=== PATIENT | male | born 1975 | race African-American/Black ===

== ENCOUNTER 2018-02-14 13:03 | Emergency (ER) | payer SELFPAY ==
[~2018-02-14] VITALS: Ht 188 cm; Wt 73.6 kg
[~2018-02-14 13:03] MED LIST: 1-ME1LIQ PO; ASPI81TA11 PO; CLOP75 PO; CONTOUR2 XX; GABA600T PO; MECL25 PO; METF500 PO; METO10 PO; NOVOLOGMXP SQ; NRSS SQ
[2018-02-14 13:28] VITALS: BP 161/98; PULSE 86; RESP 18; TEMP 97.8; O2SAT 99
--- NOTE | 2018-02-14 14:08 | RADRPT ---
EXAM DATE/TIME: 02/14/2018 13:41 [place] COMPARISON: No previous studies available for comparison. INDICATIONS : Right foot pain, no injury. MEDICAL HISTORY : Hypercholesterolemia. Hypertension Diabetes mellitus type II. SURGICAL HISTORY : Right foot surgery. ENCOUNTER: Initial ACUITY: 3 days PAIN SCORE: 5/10 LOCATION: Right foot, great toe. FINDINGS: There is amputation at the base of the proximal thigh to the second digit. There is no evidence of ac [place] fracture. Bony mineralization is normal. Joint spaces are maintained. CONCLUSION: 1. There is no evidence of acute fracture. Garrett Esqueda MD on February 14, 2018 at 13:58 Board Certified Radiologist. This report was verified electronically.
[2018-02-14 16:01] LABS: AUTOMATED NEUTROPHIL # 3.4 TH/MM3 (1.8-7.7); BASOPHIL # 0.1 TH/MM3 (0-0.2); BASOPHIL % 0.6 % (0.0-2.0); EOSINOPHIL # 0.2 TH/MM3 (0-0.4); EOSINOPHIL % 2.8 % (0.0-4.0); HEMATOCRIT 40.3 % (39.0-51.0); HEMOGLOBIN 13.5 GM/DL (13.0-17.0); LYMPH % 47.6 % (9.0-44.0); MEAN CELL VOLUME 93.6 FL (80.0-100.0); MEAN CORPUSCULAR HEMOGLOBIN 31.4 PG (27.0-34.0); MEAN CORPUSCULAR HGB CONC 33.6 % (32.0-36.0); MONO % 7.7 % (0.0-8.0); MONOCYTE # 0.6 TH/MM3 (0-0.9); NEUT % 41.3 % (16.0-70.0); PLATELET COUNT 365 TH/MM3 (150-450); RED CELL DISTRIBUTION WIDTH 12.8 % (11.6-17.2); WHITE BLOOD COUNT 8.3 TH/MM3 (4.0-11.0)
[2018-02-14 16:08] LABS: ALBUMIN 2.4 GM/DL (3.4-5.0); AST (GOT) 68 U/L (15-37); BICARBONATE 26.3 MEQ/L (21.0-32.0); BLOOD UREA NITROGEN 17 MG/DL (7-18); C-REACTIVE PROTEIN 0.67 MG/DL (0.00-0.30); CALCIUM 8.6 MG/DL (8.5-10.1); CHLORIDE 108 MEQ/L (98-107); GLOMERULAR FILTRATION RATE 80 ML/MIN (>89); GLUCOSE,RANDOM 98 MG/DL (74-106); SODIUM (NA) 141 MEQ/L (136-145)
[2018-02-14 16:11] LABS: ALKALINE PHOSPHATASE 687 U/L (45-117); ALT (GPT) 78 U/L (12-78); TOTAL BILIRUBIN ADULT 0.8 MG/DL (0.2-1.0); TOTAL PROTEIN 6.9 GM/DL (6.4-8.2)
[2018-02-14 16:14] LABS: INTERNATIONAL NORMALIZED RATIO 0.9 RATIO; PROTHROMBIN TIME - PATIENT 9.5 SEC (9.8-11.6)
[2018-02-14 16:48] VITALS: BP_SYST 194; BP_SYST 99; BP_DIAS 111; BP_DIAS 71; PULSE 74; RESP 14; O2SAT 99
[2018-02-14] MEDS ORDERED: LOSARTAN 25 MG TAB PO ONE (17:15)
[2018-02-14] MEDS ORDERED: AMLO10 PO (17:29)
[2018-02-14] MEDS ORDERED: NOVOLOGMXP SQ (17:29)
[2018-02-14] MEDS ORDERED: LOSA25TA PO ×2 (17:29→18:01)
[2018-02-14] MEDS ORDERED: LEVEMIR SQ (17:29)
[2018-02-14] MEDS ORDERED: NOVORP2 SQ (17:29)
[2018-02-14] MEDS ORDERED: MECL-62 PO (17:29)
[2018-02-14] MEDS ORDERED: ASPI81TA16 PO (17:29)
[2018-02-14] MEDS ORDERED: GABA600T PO (17:29)
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
[2018-02-14] MEDS ORDERED: SULFAMETHOXAZOLE-TRIMETHOPRIM DS 800-160 MG TAB PO ONE (17:45)
[2018-02-14] MEDS ORDERED: CEPHALEXIN MONOHYDRATE 500 MG CAP PO ONE (17:45)
--- NOTE | 2018-02-14 17:48 | PD ---
Physical Exam Date Seen by Provider: Feb 14, 2018 Narrative This is a diabetic patient who presents with a chief complaint of of a sore right great toe. Data Data Last Documented VS Vital Signs Date Time Temp Pulse Resp B/P (MAP) Pulse Ox O2 Delivery O2 Flow Rate FiO2 02/14/18 16:48 74 14 194/111 (138) 99 Room Air 02/14/18 13:28 97.8 Orders Orders Complete Blood Count With Diff (02/14/18 13:31) Comprehensive Metabolic Panel (02/14/18 13:31) Prothrombin Time / Inr (Pt) (02/14/18 13:31) Act Partial Throm Time (Ptt) (02/14/18 13:31) [place]gren Sedimentation Rate (02/14/18 13:31) C-Reactive Protein (Crp) (02/14/18 13:31) Foot, Complete ([id number]) (02/14/18 ) Amlodipine (Norvasc) (02/14/18 17:15) Losartan (Cozaar) (02/14/18 17:15) Labs Laboratory Tests Test 02/14/18 15:09 White Blood Count 8.3 TH/MM3 Red Blood Count 4.30 MIL/MM3 Hemoglobin 13.5 GM/DL Hematocrit 40.3 % Mean Corpuscular Volume 93.6 FL Mean Corpuscular Hemoglobin 31.4 PG Mean Corpuscular Hemoglobin Concent 33.6 % Red Cell Distribution Width 12.8 % Platelet Count 365 TH/MM3 Mean Platelet Volume 8.0 FL Neutrophils (%) (Auto) 41.3 % Lymphocytes (%) (Auto) 47.6 % Monocytes (%) (Auto) 7.7 % Eosinophils (%) (Auto) 2.8 % Basophils (%) (Auto) 0.6 % Neutrophils # (Auto) 3.4 TH/MM3 Lymphocytes # (Auto) 4.0 TH/MM3 Monocytes # (Auto) 0.6 TH/MM3 Eosinophils # (Auto) 0.2 TH/MM3 Basophils # (Auto) 0.1 TH/MM3 CBC Comment DIFF FINAL Differential Comment Erythrocyte Sedimentation Rate 17 mm/hr Prothrombin Time 9.5 SEC Prothromb Time International Ratio 0.9 RATIO Activated Partial Thromboplast Time 27.5 SEC Blood Urea Nitrogen 17 MG/DL Creatinine 1.20 MG/DL Random Glucose 98 MG/DL Total Protein 6.9 GM/DL Albumin 2.4 GM/DL Calcium Level 8.6 MG/DL Alkaline Phosphatase 687 U/L Aspartate Amino Transf (AST/SGOT) 68 U/L Alanine Aminotransferase (ALT/SGPT) 78 U/L Total Bilirubin 0.8 MG/DL Sodium Level 141 MEQ/L Potassium Level 4.1 MEQ/L Chloride Level 108 MEQ/L Carbon Dioxide Level 26.3 MEQ/L Anion Gap 7 MEQ/L Estimat Glomerular Filtration Rate 80 ML/MIN C-Reactive Protein 0.67 MG/DL MDM Supervised Visit with ANTONIO: Yes Narrative Course I, Dr. Lopez, have reviewed the advance practice practitioner's documentation and am in agreement, met with the patient face to face, made the diagnosis, and the medical decision making was done by me. *My assessment and Findings: The patient has terrible nail hygiene. He also has a paronychia of the right great toe. He is missing several other toes. CBC & BMP Diagram 02/14/18 15:09 Total Protein 6.9, Albumin 2.4 L, Calcium Level 8.6, Alkaline Phosphatase 687 H , Aspartate Amino Transf (AST/SGOT) 68 H, Alanine Aminotransferase (ALT/SGPT) 78 , Total Bilirubin 0.8 Sed rate 17. CRP 0.67 Last Impressions Foot X-Ray 02/14/18 0000 Signed Impressions: Service Date/Time: Wednesday, February 14, 2018 13:41 - CONCLUSION: 1. There is no evidence of acute fracture. Garrett Esqueda MD Please see Goran Elizondo PA-C's note for results of laboratory and radiographic evaluation, ED course, final diagnosis and disposition Pat Lopez MD Feb 14, 2018 17:48
[2018-02-14] MEDS ORDERED: BACT800T5 PO (18:01)
[2018-02-14] MEDS ORDERED: CEPH-460 PO (18:01)
[2018-02-14] MEDS ORDERED: AMLO10TA2 PO (18:01)
== END 2018-02-14 18:33 | disposition home or self-care (01) ==
LOC: NEPC 13:03
DX: L03.031 Cellulitis of right toe (principal); B35.1 Tinea unguium; E11.621 Type 2 diabetes mellitus with foot ulcer; L97.519 Non-pressure chronic ulcer of other part of right foot with unspecified severity; J45.909 Unspecified asthma, uncomplicated; I10 Essential (primary) hypertension; E78.00 Pure hypercholesterolemia, unspecified; Z76.0 Encounter for issue of repeat prescription; Z86.73 Personal history of transient ischemic attack (TIA), and cerebral infarction without residual deficits; Z79.4 Long term (current) use of insulin; Z79.82 Long term (current) use of aspirin; Z89.421 Acquired absence of other right toe(s); Z89.412 Acquired absence of left great toe
CPT/HCPCS: 73630; 80053; 85025; 85610; 85652; 85730; 86140; 87070; 87205; 99284